=== PATIENT | female | born 1995 | race African-American/Black ===

== ENCOUNTER 2019-05-16 12:58 | Emergency (ER) | payer SELFPAY ==
--- NOTE | ~2019-05-16 | XR_ITS ---
EXAMINATION: XR chest 2V DATE: 05/16/2019 14:33 INDICATION: Right anterior chest pain TECHNIQUE: PA and lateral views of the chest are obtained. COMPARISON: None available FINDINGS: The lungs are free of acute opacities. There is no pleural effusion or pneumothorax. The ca rdiomediastinal silhouette is normal. The visualized bones and soft tissues are unremarkable. IMPRESSION: 1. No acute cardiopulmonary abnormality. Reviewed, dictated and finalized at location A.
[2019-05-16 13:06] VITALS: BP 148/101; PULSE 88; RESP 28; O2SAT 98
--- NOTE | 2019-05-16 13:20 | PC.NURSE ---
Pt reports she was seen at an urgent care 2 wks ago for same symptoms and was dx with URI, rx steroid pack. This episode started on thursday, was worse yesterday, called the urgent care and was told to come into the ER but didn't until today because she needs to go back to work
--- NOTE | 2019-05-16 13:26 | ECG_ITS ---
Measurements Intervals [place] Rate: 75 P: 49 SD: 144 QRS: 20 QRSD: 93 T: 40 QT: 371 QTc: 417 Interpretive Statements SINUS RHYTHM DELAYED PRECORDIAL R/S TRANSITION MINIMAL Q WAVES- INFERIOR LEADS BORDERLINE ECG Electronically Signed On 05-16-2019 14:00:42 CDT by Mark Ness D.O.
--- NOTE | 2019-05-16 13:52 | ED.GENADULT ---
HPI - General Adult General Chief complaint: Unspecified Stated complaint: chest pain Time Seen by Provider: 05/16/19 13:13 Source: patient Mode of arrival: ambulatory Limitations: no limitations History of Present Illness HPI narrative: Pt is a 24 y/o female who presents to the ED with c/o rt sided CP that radiates to her back. Pt states that she is worried she has pneumonia and notes that she had a Bx done in 2018 at [facility] for a mass on her lungs. She notes that she was while she was Dx and they did not do the Bx until after she miscarried. Pt reports that her chest feels tense and she denies having a fever. complaint: CP Location: chest and right Radiation: back Quality: other (tense) Associated symptoms: other (back pain) Related Data Home Medications Medication Instructions Recorded Confirmed albuterol sulfate [ProAir HFA] 2 puff INHALATION QID PRN 05/16/19 Allergies Allergy/AdvReac Type Severity Reaction Status Date / Time metronidazole Allergy Unknown Verified 12/09/17 15:50 Review of Systems Review of Systems: All systems reviewed & are unremarkable except as noted in HPI and below Constitutional: Constitutional: Denies fever(s) Cardiovascular: Cardiovascular: Reports chest pain (rt sided) Musculoskeletal: Musculoskeletal: Reports back pain (rt sided) [facility] Past Medical History Medical History (Updated 05/16/19 @ 16:20 by Bakari Fernandez MD) Pneumonia Surgical History Surgical History (Updated 05/16/19 @ 14:08 by Armin Farooq) History of lung biopsy Family History Family History (Updated 12/09/17 @ 13:31 by DOCTOR UNKNOWN) Grandparent Family history of malignant neoplasm of breast in first degree relative Social History Social History Smoking status: Light tobacco smoker Second hand tobacco smoke exposure: Yes Alcohol intake: current Substance use type: marijuana Exam Const: General: healthy appearing, no acute distress and well developed Nutritional Appearance: well nourished Orientation/consciousness: patient oriented x3 (alert) and Other orientation findings (Alert) Limitations: no limitations HENMT: Head: normocephalic and atraumatic Ears: external ears normal General nose exam: No nasal discharge present and no epistaxis Face and sinus: face symmetric Mouth: Yes lip normal and Yes moist mucous membranes Eyes: Conjunctivae: conjunctivae normal Sclera: sclerae normal EOM: EOMs intact bilaterally Neck: Neck: full ROM Thyroid: thyroid normal Chest: Chest palpation & inspection: abnormal inspection of the chest (100% of CP is reproducible with palpation of rt lateral sternum) Resp: Effort & Inspection: normal respiratory effort Auscultation: clear to auscultation bilaterally, no rales, no rhonchi, no wheezes and other (breath sounds equal) Cardio: Rate: regular rate Rhythm: regular rhythm Heart sounds: no gallops and no murmurs GI: Inspection: non-distended GI Palp: No abdominal tenderness and Yes Soft to palpation Auscultation: other (bowel sounds present) : General: Yes no CVA tenderness Back/Spine/Pelvis: Back: no CVA tenderness Thoracic/Lumbar Spine: thoracic and lumbar spine normal to inspection Skin: General skin exam: normal color and no rashes or lesions noted Neuro: General: patient oriented x3 (alert), moves all extremities and no focal motor deficits Cranial nerves: Yes facial symmetry Speech: normal speech Motor exam (neuro): Motor abnormalities not present Extrem: General: normal to inspection, full ROM and no pedal edema Psych: Affect: normal affect Course Vital Signs Vital signs: Vital Signs Pulse Rate 88 05/16/19 13:06 Respiratory Rate 28 H 05/16/19 13:06 Blood Pressure 148/101 H 05/16/19 13:06 Pulse Oximetry 98 05/16/19 13:06 Pulse Rate 88 05/16/19 13:06 Respiratory Rate 28 H 05/16/19 13:06 Blood Pressure 148/101 H 05/16/19 13:06 Pul
[2019-05-16] MEDS: KETOROLAC (*BKC) 60 MG/2 ML VIAL IM (14:35)
[2019-05-16 14:36] LABS: Basophils Percent Auto 0.4 % (0.2-1.2); Eosinophils Absolute Auto 0.1 K/mm3 (0-0.3); Eosinophils Percent Auto 1.4 % (0-4.4); Hematocrit 36.9 % (37.0-47.0); Hemoglobin 11.7 g/dL (12.0-15.0); Immature Granulocyte Absolute 0.01 K/mm3 (0.00-0.031); Immature Granulocyte Percent A 0.1 % (0-0.5); Lymphocytes Absolute Auto 1.78 K/mm3 (0.9-3.2); Lymphocytes Percent Auto 24.9 % (18.3-44.2); Mean Corpuscular HGB Conc 31.7 g/dl (32-36); Mean Corpuscular Hemoglobin 28.1 pg (26-34); Mean Corpuscular Volume 88.7 fl (80-100); Mean Platelet Volume 10.3 fl (7.4-10.4); Monocytes Absolute Auto 0.6 K/mm3 (0.1-0.6); Monocytes Percent Auto 8.8 % (2.6-8.5); Neutrophils Absolute Auto 4.6 K/mm3 (1.3-6.7); Neutrophils Percent Auto 64.4 % (45.5-73.1); Platelet Count Result 237 k/mm3 (150-375); Red Blood Count 4.16 M/mm3 (4.2-5.4); Red Cell Distribution Width 12.4 % (11.5-14.5); White Blood Count 7.1 K/mm3 (4.5-10.0)
[2019-05-16 14:53] LABS: Blood Urea Nitrogen 8 mg/dL (7-17); Calcium 9.5 mg/dL (8.4-10.2); Carbon Dioxide 29 mmol/L (22-30); Chloride 104 mmol/L (98-107); Estimated CRCL calculation 113 ml/min; Estimated Glomerular Filt Rate > 60; Glucose 77 mg/dL (65-105); Potassium 3.6 mmol/L (3.4-5.0); Sodium 138 mmol/L (137-145)
[2019-05-16 15:04] LABS: Troponin I < 0.012 ng/mL (0.000-0.034)
[2019-05-16 16:43] VITALS: BP 118/58; PULSE 72; RESP 18; O2SAT 100
== END 2019-05-16 16:44 | disposition home or self-care (01) ==
PROVIDERS: Emergency Provider Emergency Medicine
DX: R07.1 Chest pain on breathing (principal); F17.200 Nicotine dependence, unspecified, uncomplicated; R94.31 Abnormal electrocardiogram [ECG] [EKG]
CPT/HCPCS: 36415; 71046; 80048; 84484; 85025; 85380; 93005; 96372; 99284; J1885

== ENCOUNTER 2020-04-05 08:39 | Emergency (ER) | payer OTHER, SELFPAY ==
[2020-04-05 08:39] VITALS: BP 154/98; PULSE 92; RESP 27; TEMP 36.2; O2SAT 96
[2020-04-05 08:46] VITALS: PULSE 84; PULSE 94; RESP 20
--- NOTE | 2020-04-05 08:50 | ED.SOB ---
HPI - SOB/Dyspnea General Chief Complaint: Shortness of Breath/Dyspnea Stated Complaint: SOB Source: patient Mode of arrival: EMS Limitations: no limitations History of Present Illness HPI Narrative: A 25-year-old female comes into the emergency department with complaints of shortness of breath. She states that she does have asthma. Patient states that her dog got out and she had to go outside. Patient notes that the extreme cold seem to flareup her symptoms. In route via EMS she did receive a breathing treatment me in the back of the warm ambulance did help her symptoms. Now by arrival she is on complaining of minor shortness of breath. Related Data Home Medications Medication Instructions Recorded Confirmed albuterol sulfate [ProAir HFA] 2 puff INHALATION QID PRN 05/16/19 Allergies Allergy/AdvReac Type Severity Reaction Status Date / Time metronidazole Allergy Unknown Rash Verified 04/05/20 08:45 Review of Systems Review of Systems: Narrative: CONSTITUTIONAL: Denies fever, chills, or sweats. EYES: Denies visual changes, redness, or discharge. ENT: Denies rhinorrhea, congestion, sore throat, or otalgia. CARDIOVASCULAR: Denies chest pain, palpitations, or edema. RESPIRATORY: Denies cough or dyspnea. GASTROINTESTINAL: Denies abdominal pain, nausea, vomiting, or diarrhea. GENITOURINARY: Denies dysuria or hematuria. SKIN: Denies rash or itching. MUSCULOSKELETAL: Denies back pain, joint pain, or myalgia. NEUROLOGIC: Denies headache, numbness, dizziness, or weakness. PSYCHIATRIC: Denies anxiety or depression. [facility] Past Medical History Medical History Pneumonia Surgical History Surgical History History of lung biopsy Family History Family History Grandparent Family history of malignant neoplasm of breast in first degree relative Social History Social History Smoking status: Light tobacco smoker Second hand tobacco smoke exposure: Yes Alcohol intake: current Substance use type: marijuana Exam Narrative: Exam Narrative: GENERAL: Well-appearing, well-nourished, and in no acute distress. HEAD: Normocephalic, atraumatic. EYES: PERRLA and EOMI. ENT: Nares clear, no rhinorrhea or epistaxis. Mucous membranes moist. NECK: Supple. No adenopathy or masses. No carotid bruits or JVD CHEST: Clear to auscultation. No respiratory distress. No wheezes rales or rhonchi HEART: Regular rate and rhythm. No murmur heard. Normal peripheral pulses. ABDOMEN: Soft, nontender, nondistended, normal active bowel sounds. EXTREMITIES: Normal range of motion. No edema. SKIN: Warm, dry, no rash. NEURO: No focal deficits. Alert and oriented x3. PSYCH: Normal mood and affect. Course Vital Signs Vital signs: Vital Signs Temperature 36.2 C L 04/05/20 08:39 Pulse Rate 92 04/05/20 08:39 Respiratory Rate 27 H 04/05/20 08:39 Blood Pressure 154/98 H 04/05/20 08:39 Pulse Oximetry 96 04/05/20 08:39 Temperature 36.2 C L 04/05/20 08:39 Pulse Rate 87 04/05/20 09:15 Respiratory Rate 19 04/05/20 09:15 Blood Pressure 143/99 H 04/05/20 09:15 Pulse Oximetry 100 04/05/20 09:15 MDM - SOB/Dyspnea MDM Narrative Medical decision making narrative: In brief this 25-year-old female came into the emergency department after likely cold-induced bronchospasm. She does have a history of asthma. Patient received breathing treatment from EMS which did help her symptoms as did being in the back of the warm ambulance. After brief observation here in the emergency department patient did receive another breathing treatment with complete resolution of her wheezing and symptoms. Patient does that she feels much better will be discharged home. Medical Records Attestation: I reviewed the patient's medical records
[2020-04-05] MEDS: IPRATROPIUM BR 0.02% INH SOLN 0.5 MG/2.5 ML VIAL INHALATION (09:04)
[2020-04-05] MEDS: ALBUTEROL SULFATE NEB 2.5 MG/0.5 ML INH 5 MG INHALATION (09:04)
[2020-04-05 09:06] VITALS: PULSE 82; RESP 20
[2020-04-05 09:15] VITALS: BP 143/99; PULSE 87; RESP 19; O2SAT 100
[2020-04-05] MEDS: methylPREDNISolone SOD SUCC 125 MG VIAL IM (09:34)
[2020-04-05 09:37] VITALS: O2SAT 99
== END 2020-04-05 09:46 | disposition home or self-care (01) ==
PROVIDERS: Emergency Provider Emergency Medicine
DX: J98.01 Acute bronchospasm (principal)
CPT/HCPCS: 94640; 96372; 99283; J2930